=== PATIENT | female | born 2000 | race Caucasian/White ===

== ENCOUNTER 2019-08-10 12:10 | Emergency (ER) | payer MEDICAID ==
[~2019-08-10] VITALS: Ht 160 cm; Wt 122.7 kg
[2019-08-10 13:09] LABS: BASOPHILS % (AUTO) 0.2 % (0-1); EOSINOPHILS % (AUTO) 0 % (0-6); HEMATOCRIT 45.7 % (35.0-45.0); LYMPHOCYTES # (AUTO) 1.2 X10'3 (1.1-4.8); LYMPHOCYTES % (AUTO) 6.8 % (21-51); MEAN CORPUSCULAR HEMOGLOBIN 32.5 PG (27.0-31.0); MEAN CORPUSCULAR VOLUME 92.9 FL (78-98); MEAN PLATELET VOLUME 8.7 FL (7.4-10.4); MONOCYTES # (AUTO) 0.8 X10'3 (0-0.9); MONOCYTES % (AUTO) 4.5 % (2-12); NEUTROPHILS # (AUTO) 16.1 X10'3 (1.8-7.7); NEUTROPHILS % (AUTO) 88.5 % (42-75); PLATELET COUNT 263 X10'3 (140-440); RED BLOOD COUNT 4.92 X10'6 (4.20-5.60); RED CELL DISTRIBUTION WIDTH 12.4 % (11.5-14.5); WHITE BLOOD COUNT 18.2 X10'3 (4.5-11.0)
[2019-08-10 13:23] LABS: ALANINE AMINOTRANSFERASE 34 U/L (12-78); ALBUMIN 4.4 G/DL (3.4-5.0); ALBUMIN/GLOBULIN RATIO 1.3 (1.1-1.5); ALKALINE PHOSPHATASE 77 IU/L (46-116); AMYLASE 18 U/L (25-115); ANION GAP 11 (8-16); ASPARTATE AMINO TRANSFERASE 15 U/L (10-37); BILIRUBIN,TOTAL 0.9 MG/DL (0.1-1.0); BLOOD UREA NITROGEN 10 MG/DL (7-18); BUN/CREATININE RATIO 14.7 (6.6-38.0); CALCIUM 9.1 MG/DL (8.5-10.1); CHLORIDE 105 MMOL/L (99-107); CREATININE 0.68 MG/DL (0.40-0.90); GLUCOSE 135 MG/DL (70-104); LIPASE < 50 U/L (73-393); POTASSIUM 3.9 MMOL/L (3.5-5.1); SODIUM 142 MMOL/L (135-145); TOTAL CARBON DIOXIDE 26.2 MMOL/L (24-32); TOTAL PROTEIN 7.8 G/DL (6.4-8.2); eGFR > 90 ML/MIN
[2019-08-10 13:24] LABS: URINE HCG NEGATIVE (NEG)
[2019-08-10 13:27] LABS: CLARITY,URINE CLOUDY (Clear); COLOR,URINE AMBER (Yellow); GLUCOSE, URINE NEGATIVE (Neg); KETONES,URINE >=80 mg/dl (Neg); LEUKOCYTE ESTERASE ,URINE TRACE (Neg); NITRITES, URINE NEGATIVE (Neg); OCCULT BLOOD,URINE LARGE (Neg); PH,URINE 5.5 (4.8-8.0); PROTEIN,URINE 100 mg/dl (Neg)
[2019-08-10 13:42] LABS: UA COLLECTION TYPE CLN CATCH MIDSTREAM
[2019-08-10 13:47] LABS: MUCUS STRANDS MANY /LPF (Neg)
[2019-08-10 13:49] LABS: RBC,URINE TNTC /HPF (0-2)
[2019-08-10 13:51] LABS: SQUAMOUS EPITHELIAL CELL,UR MANY /LPF (FEW); TRANSITIONAL EPI CELLS,URINE FEW /HPF
[2019-08-10 13:55] LABS: BACTERIA,URINE 1+ /HPF (Neg)
[2019-08-10] MEDS ORDERED: HYDROcodone/acetaminophen 5mg/325mg tablet PO ONE (14:00)
[2019-08-10] MEDS ORDERED: ondansetron 4mg rapidly disintigrating tab PO ONE (14:00)
[2019-08-10] MEDS ORDERED: HYDROcodone/acetaminophen 10/325mg tab PO ONE (16:35)
--- NOTE | 2019-08-10 23:09 | NUR ---
PT WILL BE ACCEPTED TO [facility] FOR [facility] [employer] ONC SX TRANSFER. PENDING BED ASSIGNMENT FROM [facility] UPDATED ON PLAN OF CARE. PT IS CURRENTLY STABLE AT THIS TIME.
--- NOTE | 2019-08-10 23:21 | NUR ---
PT HAS BEEN ACCEPTED TO [facility] ([facility] - [facility]), UNIT ADULT 6, BED #14. ACCE[address]ING MD DR. PETERSEN. REPORT TO BE CALLED @ [phone]. PENDING TRANSPORTATION. PT AWARE AND HAS AGREED FOR TRANSPORT TO [facility]. ETA OF PT DELIVERY TO BE CALLED BACK TO [facility] @ [phone].
--- NOTE | 2019-08-11 00:01 | NUR ---
ATTEMPTED 2X AT PIV ACCESS.
--- NOTE | 2019-08-11 00:51 | NUR ---
REPORT GIVEN TO PATRICK DONNELLY ON UNIT ADULT 6 AT [facility]. PT REMAINS STABLE AT THIS TIME. PT WILL BE TRANSPORTED BY [facility], PENDING TRANSPO.
[2019-08-11 02:08] VITALS: BP 130/82
== END 2019-08-11 02:11 | disposition short-term general hospital (02) ==
LOC: ER 12:11
DX: D36.9 Benign neoplasm, unspecified site (principal); D72.829 Elevated white blood cell count, unspecified; R11.10 Vomiting, unspecified; Z88.0 Allergy status to penicillin
CPT/HCPCS: 36415; 74176; 76856; 80053; 81001; 81025; 82150; 83690; 85025; 99285